=== PATIENT | female | born 1990 | race Caucasian/White ===

== ENCOUNTER → 2022-05-15 09:38 | Outpatient (BNVA) | payer BC, MEDICAID, SELFPAY | PROVIDERS: Family Provider Counselor Professional; Visit Provider Counselor Professional | DX: F43.12 Post-traumatic stress disorder, chronic (principal); F33.2 Major depressive disorder, recurrent severe without psychotic features; F41.0 Panic disorder [episodic paroxysmal anxiety]; R41.9 Unspecified symptoms and signs involving cognitive functions and awareness | CPT/HCPCS: 90791 ==

== ENCOUNTER → 2023-08-04 17:25 | Outpatient (BNVA) | payer MEDICAID, SELFPAY | PROVIDERS: Family Provider Counselor Professional; Visit Provider Psychiatry & Neurology Neurology | DX: F33.2 Major depressive disorder, recurrent severe without psychotic features (principal) | CPT/HCPCS: 80061; 83036 ==

== ENCOUNTER 2023-10-19 08:39 | Outpatient (CLI) | payer MEDICAID, SELFPAY ==
[2023-08-10 16:16] VITALS: BP 121/81; BMI 31.2
--- NOTE | 2023-10-19 08:30 | MR_ITS ---
WS: [email or web address] MRA ANGIOGRAPHY [place] HISTORY: R41.3 - Other amnesia COMPARISON: None available. TECHNIQUE: 3-D MR angiography is performed of the [place]. All images are reviewed including source images. Distal vertebral and basilar arteries are intact with no significant stenosis or plaque. LEFT vertebr al artery is slightly dominant. Posterior cerebral arteries are normal course and caliber. Posterior communicating arteries are both patent. Intracranial portion of the internal carotid arteries are normal course and caliber. No significant a therosclerosis, stenosis or aneurysm identified. Middle and anterior cerebral arteries are both paten t with no significant disease. Anterior communicating artery is also normal. IMPRESSION: Normal MRA [place].
--- NOTE | 2023-10-19 08:45 | MR_ITS ---
WS: [email or web address] MRI BRAIN WITH AND WITHOUT CONTRAST HISTORY: R56.9 - Unspecified convulsions COMPARISON: Noncontrast CT head 12/29/2021 TECHNIQUE: Multiplanar imaging performed through the brain with MultiHance 17 ml's IV. No acute infarcts are seen. Cord[place]-white matter differentiation is well preserved. Normal hippocampal f ormations. No susceptibility artifacts or prior lacunar infarcts. Ventricles and extra-axial spaces are normal. Clivus and pituitary gland are normal. Visualized posterior fossa and brainstem are also normal. Postcontrast images are negative for masses or vascular malformations. Dural venous sinuses are normal. Paranasal sinuses: Minimal mucoperiosteal thickening in the RIGHT maxillary sinus. Mastoid air cells: Normal. Calvarium and scalp: Normal. IMPRESSION: 1. Normal MRI brain with contrast. 2. No mass or prior infarcts.
--- NOTE | 2023-10-19 09:30 | MR_ITS ---
WS: [email or web address] MRA CAROTID ARTERIES HISTORY: R41.3 - Other amnesia COMPARISON: None available. TECHNIQUE: MRA is performed with intravenous gadolinium. MIP and source images are reviewed. Study is significantly compromised by venous contamination and poor technique. Right: No significant stenosis identified. No occlusions or high-grade stenosis Left: No occlusions or high-grade stenosis. Subclavian Arteries: Poorly visualized. No high-grade stenosis identified. No occlusions. Vertebral Arteries: Normal. No occlusions. LEFT vertebral artery is mildly dominant IMPRESSION: 1. No high-grade cervical carotid artery stenosis. No occlusions. No dissection. 2. Mildly dominant LEFT vertebral artery.
[2023-10-19] MEDS: gadobenate dimeglumine 20 mL vial IV (10:25)
== END 2023-10-19 08:40 | disposition home or self-care (01) ==
LOC: RAD 08:40
PROVIDERS: Family Provider Counselor Professional; Visit Provider Psychiatry & Neurology Neurology
DX: R41.3 Other amnesia (principal); Z79.899 Other long term (current) drug therapy; R56.9 Unspecified convulsions
CPT/HCPCS: 70544; 70548; 70553; A9577

== ENCOUNTER → 2024-03-07 15:38 | Outpatient (BNVA) | payer MEDICAID, SELFPAY ==
[2024-02-24 10:13] VITALS: BP 121/81; BMI 31.2
== END ==
PROVIDERS: Family Provider Counselor Professional; PCP Nurse Practitioner Family; Referring Provider Internal Medicine; Visit Provider Internal Medicine
DX: R63.5 Abnormal weight gain (principal); L68.0 Hirsutism; R41.3 Other amnesia; R56.9 Unspecified convulsions; Z79.899 Other long term (current) drug therapy
CPT/HCPCS: 82533; 82627; 84146; 84305; 84403; 84439; 84443

== ENCOUNTER → 2025-01-29 16:24 | Outpatient (BNVA) | payer MEDICAID, SELFPAY ==
[2024-02-24 10:13] VITALS: BP 121/81; BMI 31.2
== END ==
PROVIDERS: Family Provider Counselor Professional; PCP Nurse Practitioner Family; Referring Provider Psychiatry & Neurology Neurology; Visit Provider Anesthesiology Pain Medicine
DX: M54.12 Radiculopathy, cervical region (principal); M54.2 Cervicalgia; Z71.89 Other specified counseling; M54.81 Occipital neuralgia
CPT/HCPCS: 72040

== ENCOUNTER 2025-05-03 15:14 | Outpatient (CLI) | payer MEDICAID, SELFPAY ==
[2024-02-24 10:13] VITALS: BP 121/81; BMI 31.2
--- NOTE | 2025-05-03 15:15 | MR_ITS ---
WS: [email or web address] MRI CERVICAL SPINE NONCONTRAST TECHNIQUE: Sagittal T1, T2 and STIR imaging. Axial T2, gradient, and fiesta imaging. CLINICAL INFORMATION: M54.12 - Radiculopathy, cervical region COMPARISON: None. FINDINGS: Straightening of the normal cervical lordosis. Disc bulging worse at C4-5 with indentation on the cervical cord and mild central canal stenosis. C2-C3: Normal. C3-C4: Mild LEFT and no significant RIGHT bony foraminal narrowing. Mild facet arthropathy. Spinal canal is patent. C4-C5: Broad-based central disc protrusion with indentation on the cervical cord and mild central canal stenosis. Moderate RIGHT greater than LEFT bony foraminal narrowing. Mild facet arthropathy. C5-C6: Mild disc bulging with a shallow broad-based central protrusion. Mild central canal stenosis. Mild LEFT and no significant RIGHT foraminal narrowing. Mild facet arthropathy. C6-C7: Mild LEFT and no significant RIGHT bony foraminal narrowing. Mild facet arthropathy. Spinal canal is patent. C7-T1: Mild LEFT and no significant RIGHT foraminal narrowing. Spinal canal is patent. Moderate facet arthropathy. Visualized brain stem structures: Normal. Prevertebral soft tissues: Normal. MR/MR cervical spin wo con* [id number] IMPRESSION: 1. Straightening of the normal cervical lordosis with disc bulging worse at C4 -C5 and C5-C6. 2. Central broad-based protrusion C4-5 with mild central canal stenosis and in dentation of the cervical cord. 3. Mild central canal stenosis C5-6. 4. Mild to moderate bony foraminal narrowing worse at LEFT C3-4, RIGHT C4-5, L EFT C5-C6. 5. Mild LEFT C6-7 and C7-T1 bony foraminal narrowing.
== END 2025-05-03 15:15 | disposition home or self-care (01) ==
PROVIDERS: PCP Nurse Practitioner Family; Visit Provider Nurse Practitioner Family
DX: M54.12 Radiculopathy, cervical region (principal); G89.29 Other chronic pain; M50.321 Other cervical disc degeneration at C4-C5 level; M50.322 Other cervical disc degeneration at C5-C6 level; M50.221 Other cervical disc displacement at C4-C5 level; M48.02 Spinal stenosis, cervical region; M47.892 Other spondylosis, cervical region; M50.222 Other cervical disc displacement at C5-C6 level; M48.03 Spinal stenosis, cervicothoracic region; M47.893 Other spondylosis, cervicothoracic region
CPT/HCPCS: 72141

== ENCOUNTER 2025-05-30 13:55 | Emergency (ER) | payer MEDICAID, SELFPAY ==
[2024-02-24 10:13] VITALS: BP 121/81; BMI 31.2
--- NOTE | 2025-05-30 14:00 | ED_ITS ---
HPI - General Adult 2 General: Chief complaint: Seizure Stated complaint: Rapid Resp Time Seen by Provider: 05/30/25 13:56 Source: patient Mode of arrival: ambulatory Limitations: no limitations History of Present Illness: 34-year-old female history of TBI and ca me down as a rapid response from the clinic she states that she had been like for a clinic visit states that she is under a lot of stress as well and her seizures are stress-induced. Had seizure-like activity but no loss of consciousness no postictal period. She is very anxious here and crying she had a mild headache over the last 4 days which is common for her Associated symptoms: Reports headache(s); Deny chest pain, dyspnea, nausea, rash or vomiting Related Data Home Medications ?Medication ?Instructions ?Recorded ?Confirmed B-complex with vitamin C 1 tab PO DAILY 08/05/2304/22 Saccharomyces boulardii 250 mg 250 mg PO BID 08/05/23 05/07/25 capsule (Digest Probiotic (S.boulardii)) multivitamin 1 tab PO DAILY 08/05/2304/22 methocarbamol 500 mg tablet mg PO 04/23/25 05/07/25 Previous Rx's ?Medication ?Instructions ?Recorded diazepam 2 mg tablet 2 mg PO TID PRN anxiety or s leep 03/20/25 30 days #90 tabs memantine 10 mg tablet 10 mg PO DAILY 30 days #30 t abs 03/20/25 rimegepant 75 mg disintegrating 75 mg PO .QOD 30 days #16 tabs 05/29/25 tablet (Nurtec ODT) Allergies Allergy/AdvReac Type Severity Reaction Status Date / Time anti convulsants Allergy Intermediate ADR-Irritab Uncoded 05/07/25 14:48 le Review of Systems 2 Const: Denies: fever(s), chills, body aches or change in appetite ENMT: Denies: throat pain or dental pain Card: Denies: chest pain Resp: Denies: dyspnea GI: Denies: abdominal pain, nausea, vomiting or diarrhea Musc: Denies: neck pain or back pain Skin/Breast: Denies: rash Neuro: Reports: headache(s) Psych: Reports: anxiety PFSH ED 2 PFSH: Medical History Hypotension Hx of spontaneous , not currently Memory deficit Medication management Concussion Psychiatric care Surgical History Hx of tubal ligation History of History of bilateral tubal ligation Family History Other Cancer Diabetes Psychiatric illness Social History Smoking and tobacco/nicotine status: current every day tobacco/nicotine user Alcohol intake: never Substance/Drug Use: never Adopted: No Caregiver/support person: No Lives independently: Yes Household members: spouse and children Housing: House Marital status: Number of children: 3 Number of grandchildren: 0 Highest education level completed: GED or Equivalent service: No Current occupational status: unemployed and other Details: trying to file for disability Pets and animals: Yes Pets & animals: cat(s) and dog(s) Leisure activites: other Leisure activities details: spend time with the kids Sexually active: Yes Do you think of yourself as: Straight/Heterosexual Current gender identity: Female Yojana/Mosque: Yarsani Special yojana needs: No Agree to transfusion: Yes Female Reproductive History: Para: 3 Spontaneous abortions: Yes (many) Physical Exam 2 Const: COMMON NORMALS: no acute distress, patient oriented x3 and healthy appearing HENMT: COMMON NORMALS: normocephalic and atraumatic HEAD & SCALP: n ormocephalic and atraumatic Eye: COMMON NORMALS: conjunctivae normal CONJUNCTIVA: Yes conjunctivae normal Neck/C-Spine: COMMON NORMALS: full ROM and supple Chest: COMMONS NORMALS: normal inspection of the chest Resp: COMMON NORMALS: normal respiratory effort, No retractions, No use of accessory muscles and clear to auscultation bilaterally AUSCULTATION: clear to auscultation bilaterally Cardio: COMMON NORMALS: regular rate, regular rhythm and No murmurs present (Cardio) RATE: regular rate RHYTHM: regular rhythm GI: COMMON NORMALS: Normal to inspection, nondistended, normoactive bowel sounds present, Soft to palpation, non-tender and no masses PALPATION: Yes Soft to palpation Extremity: COMMON NORMALS: normal to inspection and full ROM Neuro: COMMON NORMALS: patient oriented x3, moves all extremities and no focal motor deficits Psych: COMMON NORMALS: mental status grossly normal, Normal thought process present and cooperative THOUGHT PROCESS: Normal thought process present Skin: COMMON NORMALS: no rashes or lesions noted and no wounds GENERAL SKIN EXAM: no rashes or lesions noted Course 2 Vital Signs: Vital signs: Vital Signs Temperature 98.5 F 05/30/25 14:01 Pulse Rate 111 H 05/30/25 14:01 Respiratory Rate 20 H 05/30/25 14:01 Blood Pressure 145/111 05/30/25 14:01 Pulse Oximetry 93 05/30/25 14:01 Oxygen Delivery Me thod Room Air 05/30/25 14:01 MDM - General Adult Medical Decision Making Patient presents here with possible seizure versus a panic attack. Patient's blood work is normal she feels much improved here after Ativan she has to follow-up with her PCP and return if worsening she understands agrees to plan. Medical Records I reviewed the patient's medical records. Lab Data I reviewed the patient's lab results. 05/30/25 14:10 05/30/25 14:10 Laboratory Results WBC 10.67 10^3/uL (3.29-11.43) 05/30/25 14:10 RBC 4.51 10^6/uL (3.85-5.65) 05/30/25 14:10 Hgb 13.10 g/dL (11.27-16.99) 05/30/25 14:10 Hct 40.5 % (36-47) 05/30/25 14:10 MCV 89.8 fl (85-98) 05/30/25 14:10 MCH 29.0 pg (27-33) 05/30/25 14:10 MCHC 32.3 g/dL (30-55) 05/30/25 14:10 RDW 13.7 % (12.1-15.1) 05/30/25 14:10 Plt Count 241 10^3/cmm (157-399) 05/30/25 14:10 MPV 10.8 fL (7.4-10.4) H 05/30/25 14:10 Neut % (Auto) 53.5 % 05/30/25 14:10 Lymph % (Auto) 37.5 % 05/30/25 14:10 [place] % (Auto) 7.0 % 05/30/25 14:10 Eos % (Auto) 1.0 % 05/30/25 14:10 Baso % (Auto) 0.5 % 05/30/25 14:10 Neut # (Auto) 5.71 10^3/uL (1.8-7.7) 05/30/25 14:10 Lymph # (Auto) 4.0 10^3/uL (0.8-4.8) 05/30/25 14:10 [place] # (Auto) 0.8 10^3/uL (0.2-0.9) 05/30/25 14:10 Eos # (Auto) 0.1 10^3/uL (0.0-0.8) 05/30/25 14:10 Baso # (Auto) 0.1 10^3/uL (0.0-0.1) 05/30/25 14:10 Nucleated RBC % (auto) 0 % 05/30/25 14:10 Nucleated RBCs # 0.0 /100WBC 05/30/25 14:10 Sodium 135 mmol/L (136-145) L 05/30/25 14:10 Potassium 3.8 mmol/L (3.5-5.1) 05/30/25 14:10 Chloride 101 mmol/L (98-107) 05/30/25 14:10 Carbon Dioxide 19 mmol/L (22-29) L 05/30/25 14:10 Anion Gap 18.8 (5-19) 05/30/25 14:10 BUN 14 mg/dL (6-20) 05/30/25 14:10 Creatinine 0.9 mg/dL (0.5-0.9) 05/30/25 14:10 GFR Calculation 71.3 mL/min (90-130) L 05/30/25 14:10 Glucose 83 mg/dL (65-115) 05/30/25 14:10 Calculated Osmolality 280 mOsm/kg (285-295) L 05/30/25 14:10 Calcium 9.1 mg/dL (8.5-10.5) 05/30/25 14:10 HCG, Qual Negative (Negative) 05/30/25 14:10 No radiology studies performed this visit Discharge Plan Discharge Patient Disposition: Home Clinical Impression: Generalized seizure Condition: Stable Prescriptions: No Action diazepam 2 mg tablet 2 mg PO TID PRN (Reason: anxiety or sleep) 30 Days Qty: 90 5RF memantine 10 mg tablet 10 mg PO DAILY 30 Days Qty: 30 5RF B-complex with vitamin C Tablet 1 tab PO DAILY Patient Comments: with collagen and peptide Saccharomyces boulardii [Digest Probiotic (S.boulardii)] 250 mg capsule 250 mg PO BID multivitamin Tablet 1 tab PO DAILY methocarbamol 500 mg tablet PO Nurtec ODT 75 mg tablet,disintegrating 75 mg PO .QOD 30 Days Qty: 16 3RF Discharge Orders: Discharge ED (Routine); Ordered 05/30/25 Ordered By: Ty Barriga Referrals: Octavia Palmer, [facility] RECRE[facility] SPECIALIST [Primary Care Provider, Nurse Practitioner] - 4-7 days Discharge Diet: Advance as tolerated Discharge Activity: Resume usual activity Patient Instructions: Seizures Print Language: Polish Coding Level of Care Code ED [employer] for Tr Handley
[2025-05-30 14:01] VITALS: BP 145/111; PULSE 111; RESP 20; TEMP 36.9; O2SAT 93; BMI 31.8
[2025-05-30] MEDS: LORazepam 1 MG/0.5 ML injection 2 MG IVP (14:22)
[2025-05-30 14:29] LABS: Hematocrit 40.5 % (36-47); Hemoglobin 13.10 g/dL (11.27-16.99); Mean Corpuscular HGB Conc 32.3 g/dL (30-55); Mean Corpuscular Hemoglobin 29.0 pg (27-33); Mean Corpuscular Volume 89.8 fl (85-98); Nucleated Red Blood Cells % 0 %; Platelet Count 241 10^3/cmm (157-399); Red Blood Count 4.51 10^6/uL (3.85-5.65); White Blood Count 10.67 10^3/uL (3.29-11.43)
[2025-05-30 14:37] LABS: HCG, Serum Qual Negative (Negative)
[2025-05-30 14:39] LABS: Anion Gap 18.8 (5-19); Blood Urea Nitrogen 14 mg/dL (6-20); Calcium 9.1 mg/dL (8.5-10.5); Carbon Dioxide 19 mmol/L (22-29); Chloride 101 mmol/L (98-107); Creatinine Clr Calc Pharmacy 88.2842; Glucose 83 mg/dL (65-115); Osmolality Calculated 280 mOsm/kg (285-295); Potassium 3.8 mmol/L (3.5-5.1); Sodium 135 mmol/L (136-145)
[2025-05-30 15:50] VITALS: BP 126/79; PULSE 72; O2SAT 98
== END 2025-05-30 16:05 | disposition home or self-care (01) ==
PROVIDERS: Emergency Provider Emergency Medicine; PCP Nurse Practitioner Family
DX: G40.89 Other seizures (principal); Z72.0 Tobacco use
CPT/HCPCS: 80048; 84703; 85025; 96374; 96375; 99284; J1885; J2060

== ENCOUNTER → 2025-07-04 13:41 | Outpatient (BNVA) | payer MEDICAID, SELFPAY ==
[2024-02-24 10:13] VITALS: BP 121/81; BMI 31.2
== END ==
PROVIDERS: PCP Nurse Practitioner Family; Visit Provider Psychiatry & Neurology Neurology
DX: R56.9 Unspecified convulsions (principal); R41.3 Other amnesia; G43.909 Migraine, unspecified, not intractable, without status migrainosus; R41.840 Attention and concentration deficit; R47.81 Slurred speech; S06.0X1S Concussion with loss of consciousness of 30 minutes or less, sequela; G44.301 Post-traumatic headache, unspecified, intractable; G43.711 Chronic migraine without aura, intractable, with status migrainosus; X58.XXXS Exposure to other specified factors, sequela
CPT/HCPCS: 99212

== ENCOUNTER 2025-07-18 12:08 | Outpatient (CLI) | payer MEDICARE, MEDICAID, SELFPAY ==
[2024-02-24 10:13] VITALS: BP 121/81; BMI 31.2
--- NOTE | 2025-07-18 12:46 | CT_ITS ---
WS: [email or web address] CT HEAD TECHNIQUE: Noncontrast CT of the head obtained from the skullbase to the vertex. CLINICAL INFORMATION: PERSONAL HISTORY OF TRAUMATIC BRAIN INJURY COMPARISON: MRI 10/19/2023 DLP: [id number] scans at [facility] use at least one of these dose optimization techniques: automated exposure control; mA and/or kV adjustment per patient size (includes targeted exams where dose is matched to clinical indication); or iterative reconstruction. FINDINGS: No evidence of intracranial hemorrhage or mass effect. Ventricular system and basal cisterns are patent. No extra-axial fluid collections. No evidence of mass or mass effect. Normal moraes-white differentiation. Paranasal sinuses and mastoid air cells are well aerated. .Normal visualized soft tissues. CT/CT head wo con* [id number] IMPRESSION: 1. No evidence of intracranial hemorrhage or mass effect. 2. No acute intracranial findings.
--- NOTE | 2025-07-18 13:45 | MR_ITS ---
WS: [email or web address] MRI BRAIN WITHOUT CONTRAST HISTORY: S06.0X1S - Concussion with loss of consciousness of 30 mi... COMPARISON: 10/19/2023, CT head 07/18/2025 TECHNIQUE: Diffusion imaging, multiplanar T1, T2 and FLAIR imaging obtained. No evidence for acute infarct or hemorrhage. [place]-white matter differentiation is normal. Normal hippocampal formations. No remote or acute infarcts are volume loss. Ventricles and extra-axial spaces are normal. No inferior displacement of cerebellar tonsils. The sella turcica and pituitary gland are unremarkable. Dural venous sinuses and [place] demonstrate no abnormality on this unenhanced studies. Paranasal sinuses: Clear. Mastoid air cells: Normal. Calvarium and scalp: Intact. MR/MR head wo con* [id number] IMPRESSION: 1. Unremarkable noncontrast MRI brain. 2. No prior infarct or posttraumatic brain injury. No hemorrhage.
== END 2025-07-18 12:09 | disposition home or self-care (01) ==
LOC: RAD 12:10
PROVIDERS: PCP Nurse Practitioner Family; Visit Provider Psychiatry & Neurology Neurology
DX: S06.0X1S Concussion with loss of consciousness of 30 minutes or less, sequela (principal); R41.89 Other symptoms and signs involving cognitive functions and awareness; R41.3 Other amnesia; X58.XXXS Exposure to other specified factors, sequela; Z87.820 Personal history of traumatic brain injury
CPT/HCPCS: 70450; 70551